=== PATIENT | male | born 1965 | race Caucasian/White ===

== ENCOUNTER 2018-10-26 07:05 | Day surgery (SDC) | payer MEDICAID ==
[2018-10-26] MEDS: Lactated Ringers 1,000 ML IV SCH (07:58)
[2018-10-26] MEDS ORDERED: Propofol 200 MG/20 ML SDV ONE (08:50)
[2018-10-26] MEDS ORDERED: fentaNYL 100 MCG/2 ML SDV ONE (08:50)
[2018-10-26 09:34] VITALS: BP 113/83
--- NOTE | 2018-10-26 09:57 | OR ---
PREOPERATIVE DIAGNOSIS: History of polyps. POSTOPERATIVE DIAGNOSIS: Mild sigmoid diverticulosis, otherwise normal exam. PROCEDURE PROPOSED: Total flexible colonoscopy. PROCEDURE DONE: Total flexible colonoscopy. INDICATION: This is a 53-year-old gentleman who comes in for colonic surveillance. He has had 2 prior exams, the last one being 5 years ago. He has had prior polyps removed. TECHNIQUE: The patient was brought to the endoscopy suite, placed in left lateral decubitus position. He was sedated per [employer] with propofol. The flexible video colonoscope was then passed transanally and under visualization advanced to the cecum. Examination revealed normal ascending, transverse, and descending colon. Sigmoid colon revealed some very mild diverticulosis with some very minimal inflammation, which I felt was most likely actually due to the bowel prep itself. The remainder of the rectosigmoid was normal as the scope was then withdrawn. He tolerated the procedure well. FINAL IMPRESSION: 1. Mild sigmoid diverticulosis, otherwise normal exam. 2. History of prior polyps. PLAN: The patient should continue with colonic surveillance every 5 years hereafter. SCM: 10/26/2018 09:17:33 MODL: 10/26/2018 09:48:22 /[id number]
== END 2018-10-26 10:30 | disposition home or self-care (01) ==
LOC: VM.SDS 07:05
PROVIDERS: ATTEND Surgery
DX: Z12.11 Encounter for screening for malignant neoplasm of colon (principal); K57.30 Diverticulosis of large intestine without perforation or abscess without bleeding; I10 Essential (primary) hypertension; K21.9 Gastro-esophageal reflux disease without esophagitis; F41.1 Generalized anxiety disorder; F17.210 Nicotine dependence, cigarettes, uncomplicated; G89.29 Other chronic pain; M54.5 Low back pain; L40.50 Arthropathic psoriasis, unspecified; Z90.49 Acquired absence of other specified parts of digestive tract; Z86.010 Personal history of colon polyps; Z79.1 Long term (current) use of non-steroidal anti-inflammatories (NSAID); Z79.899 Other long term (current) drug therapy
CPT/HCPCS: J2704; J3010; J7120

== ENCOUNTER 2025-04-13 07:26 | Day surgery (SDC) | payer MEDICARE, OTHER ==
[~2025-04-13 07:26] MED LIST: Lactated Ringers 1,000 ML IV SCH
[2025-04-13] MEDS: Lactated Ringers 1,000 ML IV SCH (07:47)
[2025-04-13] MEDS ORDERED: Propofol 200 MG/20 ML SDV ONE ×2 (08:01→08:20)
[2025-04-13] MEDS ORDERED: Midazolam 1 MG/ML 2 ML SDV ONE (08:02)
[2025-04-13] MEDS ORDERED: fentaNYL 100 MCG/2 ML SDV ONE (08:02)
[2025-04-13 09:00] VITALS: BP 118/78; PULSE 86
== END 2025-04-13 09:48 | disposition home or self-care (01) ==
LOC: VM.SDS 07:26
PROVIDERS: ATTEND Family Medicine
DX: Z12.11 Encounter for screening for malignant neoplasm of colon (principal); D12.0 Benign neoplasm of cecum; D12.2 Benign neoplasm of ascending colon; K57.30 Diverticulosis of large intestine without perforation or abscess without bleeding; I10 Essential (primary) hypertension; F17.210 Nicotine dependence, cigarettes, uncomplicated; Z79.899 Other long term (current) drug therapy; Z86.0100 Personal history of colon polyps, unspecified
CPT/HCPCS: 00811; 88305; J2250; J2704; J3010; J7120